=== PATIENT | female | born 1980 | race Caucasian/White ===

== ENCOUNTER 2016-12-25 22:46 | Emergency (ER) | payer BC ==
[~2016-12-25] VITALS: Ht 160 cm; Wt 133.0 kg
[~2016-12-25 22:46] MED LIST: ALPR1TAB PO; BENZ1TAB7 PO; BREX4TAB PO; ESCI20TA30 PO; IBUP-1547 PO; LAMO100T12 PO; LAMO25TA8 PO; NORE0.353 PO; TOPI100T9 PO; TRAM50TA4 PO
--- OUTSIDE RECORDS SUMMARY | 2016-12-25 22:50 | XMS REPORT | Continuity of Care Document ---
Author Author [facility] Organization [facility] Address Unknown Phone Unavailable Care Team Providers Care Timber Buyer Name Role Phone Primary Care Physician Unavailable Source Comments Some departments are not documenting in the electronic medical record. If you do not see the information that you expected, contact Release of Information in the Health Information Management department at [phone] for further assistance in locating additional records.[facility] Active Allergies and Adverse Reactions Not on File Current Medications Not on file Active Problems Not on file Social History Tobacco Use Types Packs/Day Years Used Date Never Assessed Plan of Care Health Maintenance Due Date Last Done Comments Physical (Comprehensive) 01/08/1988 Exam Pertussis Vaccine 01/08/1992 Tetanus Vaccine 1998 Cervical Cancer Screening 2002 Influenza Vaccine 04/05/2017 Results from Last 3 Months Not on file
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
--- OUTSIDE RECORDS SUMMARY | 2016-12-25 22:51 | XMS REPORT | Continuity of Care Document ---
Author Author [facility] Address Unknown Phone Unavailable Care Team Providers Care Intensivist Name Role Phone Tex Pressley Primary Care Physician [phone] Insurance Providers Payer Name Policy Number Subscriber Name Relationship [facility] [id number] Teresa Wang 19 Self / Same As Patient Advance Directives Directive Response Recorded Date/Time Advanced Directives No 11/17/16 12:55pm Chief Complaint and Reason for Visit Chief Complaint Pain Reason for Visit Migraine Problems Active Problems Medical Problem Onset Date [...] Needed as needed for Pain 45 09/28/16 Sumatriptan Succinate 6 Mg/0.5 Ml 1 Dose SUBCUTANEOUS As Needed as needed for Migraine 6 11/17/16 Zolmitriptan 5 Mg 1 [place] NASAL As Needed as needed for Migraine 6 Past Home Medications Medication Directions Ordered Status [...] Directed 12/04/15 Discontinued Metformin Hcl 500 Mg [id number], 500 Mg Oral Twice A Day 12/04/15 [...] discharge instructions. Plan of Care Discharge Date 11/17/16 3:35pm Disposition 01 HOME OR SELF-CARE Condition at Discharge Stable Instructions/Education Provided Migraine Headache (DC) Prescriptions See Medication Section Referrals Tex Pressley - Additional Instructions/Education Go home to bedrest the rest of the day, and then tomorrow resume activity as tolerated. You may be drowsy today from the medications given in the ER, so do not drive. Return to the ER if your headache comes back or gets worse. Notify your doctor's office about this headache and ER visit and to arrange follow up care. Some of your test results may not [...] worrisome symptoms. * Emergency Department phone number: [phone], x [phone]* MEDICAL RECORD If you need copies of your X-rays, call [phone] x [phone]. If you need copies of [...] the billing parties for services. [employer] Emergency Room Services [facility] Physician Services [facility] X-rays [facility] Patients will receive bills for services from the appropriate provider. If you have any questions about your [facility] bill, our staff will be happy to assist you. Please call [phone], and ask for the billing department. THANK YOU for choosing [facility] as your emergency care provider! Care Plan and Goals ~~Discharge Care Plan~~ Problem: Headache Goal: Decreased level of pain. Return to usual activities. Instructions: Take medication(s) as directed; follow up with primary care physician as directed; follow patient home care instructions. Home to rest in a quiet dark room. Functional Status No functional status results. Allergies, Adverse Reactions, Alerts Allergen Type Severity Reaction Status Last Updated Penicillin Allergy Unknown Active 11/17/16 Sulfa (Sulfonamide Antibiotics) Allergy Unknown Active 11/17/16 Prednisone Adverse Reaction Unknown Active 11/17/16 Promethazine Allergy Mild ITCHING Active 11/17/16 Immunizations Name Given Type Status Date Influenza Vaccine Received if Current 06/05/15 Historical Historical Vital Signs Acute Vital Signs Vital Response Date/Time Temperature (Fahrenheit) 98.8 11/17/2016 7:01pm Pulse 75 bpm 11/17/2016 7:01pm Respirations 16 11/17/2016 12:55pm Height 5 ft 3 in Weight 289 lb Body Mass Index 51.0 kg/m^2 Results [...] Hemoglobin Concent 32.0 g/dL 31.0-37.0 11/11/2016 1: 5311/11/2016 2:09am Red Cell Distribution Width 14.5 % 11.8-15.6 11/11/2016 1:532016 2:09am Platelet Count 321 10^3uL 150-450 11/11/2016 1:5311/11/2016 2:09am Mean Platelet Volume 9.3 FL 6.0-9.5 11/11/2016 1:5311/11/2016 2: 09am Neutrophils (%) (Auto) 59 % 51-67 11/11/2016 1:5311/11/2016 2:09am Lymphocytes (%) (Auto) 30 % 20-46 11/11/2016 1:5311/11/2016 2:09am Monocytes (%) (Auto) 9 % 3-11 11/11/2016 1:5311/11/2016 2:09am Eosinophils (%) (Auto) 2 % 0-4 11/11/2016 1:5311/11/2016 2:09am Basophils (%) (Auto) 0 % 0-2 11/11/2016 1:5311/11/2016 2:09am Neutrophils # (Auto) 6.5 X10^3 11/11/2016 1:5311/11/2016 2:09am Lymphocytes # (Auto) 3.2 X10^3 11/11/2016 1:5311/11/2016 2:09am Monocytes # (Auto) 1.0 X10^3 11/11/2016 1:5311/11/2016 2:09am Eosinophils # (Auto) 0.2 10^3uL 11/11/2016 1:5311/11/2016 2:09am Basophils # (Auto) 0.0 10^3uL 11/11/2016 1:5311/11/2016 2:09am Urine Collection Type CLEAN CATCH 11/11/2016 1:3511/11/2016 2: 17am Urine Color Yellow 11/11/2016 1:3511/11/2016 2:17am Urine Clarity Clear 11/11/2016 1:3511/11/2016 2:17am Urine pH 7.0 5.0 - 8.0 11/11/2016 1:3511/11/2016 2:17am Urine Specific [place] 1.010 1.005-1.030 11/11/2016 1:35am 2016 2:17am Urine Protein Negative Negative 11/11/2016 1:35am 11/11/2016 2:17am Urine Glucose (UA) Negative Negative 11/11/2016 [...] 17am Anion Gap 14.3 MEQ/L 3-15 11/11/2016 1:5311/11/2016 2:17am Blood Urea Nitrogen 6 mg/dL L 7-18 11/11/2016 1:53am 11/11/2016 2:17am Creatinine 0.76 mg/dL 0.6-1.2 11/11/2016 1:5311/11/2016 2:17am BUN/Creatinine Ratio 8 L 10-20 11/11/2016 1:5311/11/2016 2:17am Estimat Glomerular Filtration Rate 104.8 11/11/2016 1:53am 2016 2:17am Estimated GFR (Non- 86.6 11/11/2016 1:532016 2:17am Glucose Level 92 mg/dL 70-110 11/11/2016 [...] U/L 23-300 11/11/2016 1:53am 11/11/2016 2:17am Procedures Procedure Status Date Provider(s) ROUTINE VENIPUNCTURE Completed 11/11/16 COMPREHEN METABOLIC PANEL Completed 11/11/16 URINALYSIS AUTO W/O SCOPE Completed 11/11/16 URINE TEST Completed 11/11/16 ASSAY OF LIPASE Completed 11/11/16 COMPLETE CBC W/AUTO DIFF WBC Completed 11/11/16 HYDRATE IV INFUSION ADD-ON Completed 11/11/16 THER/PROPH/DIAG INJ IV PUSH Completed 11/11/16 TX/PRO/DX INJ NEW DRUG ADDON Completed 11/11/16 EMERGENCY DEPT VISIT Completed 11/11/16 Completed 11/11/16 Completed 11/11/16 Completed 11/11/16 Encounters Encounter Location Arrival/Admit Date Discharge/Depart Date Attending Provider Departed Emergency Room [facility] 11/17/16 12:52pm 11/17/16 3:35pm MADAI MCMULLEN DO Departed Emergency Room [facility] 11/11/16 1:13am 11/11/16 2:50am DIOGENES SKY MD Recent Diagnosis
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
--- OUTSIDE RECORDS SUMMARY | 2016-12-25 22:51 | XMS REPORT | Continuity of Care Document ---
Author Author [facility] Address Unknown Phone Unavailable Care Team Providers Care Community Board Member Name Role Phone Tex Pressley Primary Care Physician [phone] Insurance Providers Payer Name Policy Number Subscriber Name Relationship [facility] [id number] Teresa Wang 19 Self / Same As Patient Advance Directives Directive Response Recorded Date/Time Advanced Directives No 12/09/16 1:48am Chief Complaint and Reason for Visit Chief Complaint Pain Reason for Visit Left flank pain Problems Active Problems Medical Problem Onset [...] Migraine 6 11/17/16 Zolmitriptan 5 Mg 1 [place] NASAL As Needed as needed for Migraine 6 Ondansetron 4 Mg 4 Mg ORAL As Needed as needed for Nausea 11/22/16 Norethindrone 0.35 Mg 1 Tab ORAL Daily In Am 11/22/16 Ketorolac Tromethamine 10 Mg 10 Mg ORAL Every 6 Hours as needed for Pain 12 12/09/16 Metoclopramide Hcl 10 Mg 10 Mg ORAL Every 6 Hours as needed for Nausea/ Vomiting 10 12/09/16 Past Home Medications Medication Directions Ordered Status [...] Directed 12/04/15 Discontinued Metformin Hcl 500 Mg [id number], 500 Mg Oral Twice A Day 12/04/15 [...] Needed as needed for Pain 09/28/16 Discontinued Social History Query Response Start Date Stop Date Smoking Status Never smoker Hospital Discharge Instructions No hospital discharge instructions. Plan of Care Discharge Date 12/09/16 5:13am Disposition 01 HOME OR SELF-CARE Instructions/Education Provided Kidney Stones (DC) Prescriptions See Medication Section Referrals Tex Pressley - Additional Instructions/Education ED JUANCARLOS if any worse. Follow up with your urologist Saturday. Some of your test results may not [...] worrisome symptoms. * Emergency Department phone number: [phone], x [phone]* MEDICAL RECORD If you need copies of your X-rays, call [phone] x [phone]. If you need copies of [...] services. SERVICE BILLING LIBERTARIAN Emergency Room Services [facility] Physician Services [facility] X-[facility] [place] [facility] Patients will receive bills for services from the appropriate provider. If you have any questions about your [facility] bill, our staff will be happy to assist you. Please call [phone], and ask for the billing department. THANK YOU for choosing [facility] as your emergency care provider! Care [...] 12/09/16 Prednisone Adverse Reaction Unknown Active 12/09/16 Promethazine Allergy Mild ITCHING Active 12/09/16 Immunizations Name Given Type Status Date Influenza Vaccine Received if Current 06/05/15 Historical Historical Vital Signs Acute Vital Signs Vital Response Date/Time Temperature (Fahrenheit) 97.8 12/09/2016 5:11am Pulse 80 bpm 12/09/2016 5:11am Respirations 16 12/09/2016 5:11am Height 5 ft 3 in Weight 291 lb Body Mass Index 51.0 kg/m^2 Results [...] Mean Corpuscular Hemoglobin 28.9 PG 26.0-34.0 11/11/2016 1:532016 2:09am Mean Corpuscular Hemoglobin Concent 32.0 g/dL [...] 2:09am Urine Collection Type CLEAN CATCH 11/11/2016 1:35am 11/11/2016 2: 17am Urine Color Yellow 11/11/2016 1:35am 11/11/2016 2:17am Urine Clarity Clear 11/11/2016 1:35am 11/11/2016 2:17am Urine pH 7.0 5.0 - 8.0 11/11/2016 1:35am 11/11/2016 2:17am Urine Specific [place] 1.010 1.005-1.030 11/11/2016 1:35am 2016 2:17am Urine [...] Calculated Osmolality 272 mosm/L L 280-300 11/11/2016 1:5311/11/2016 2:17am Calcium Level 8.5 mg/dL L 8.8-10.8 11/11/2016 1:53am 11/11/2016 2:17am Calcium/Ionized Calcium Ratio 3.9 mg/dL 3.8-4.6 11/11/2016 1:5311/11 2:17am Total Bilirubin 0.7 mg/dL 0.1-1.0 11/11/2016 1:53am 11/11/2016 2:17am Alkaline Phosphatase 112 U/L 38-126 11/11/2016 1:5311/11/2016 2: 17am Aspartate Amino Transf (AST/SGOT) 19 U/L 15-37 11/11/2016 1:53am 2016 2:17am Alanine Aminotransferase (ALT/SGPT) 38 U/L 30-65 11/11/2016 1:5304/2017 2:17am Total Protein 6.7 g/dL 6.4-8.5 11/11/2016 1:5311/11/2016 2:17am Albumin 3.7 g/dL 3.4-5.0 11/11/2016 1:5311/11/2016 2:17am Albumin/Globulin Ratio 1.233 1.1-1.8 11/11/2016 1:53am 11/11/2016 2: 17am Lipase 71 U/L 23-300 11/11/2016 1:5311/11/2016 2:17am Pending Laboratory Results Test Name Collection Date/Time [...] 11/11/16 Completed 11/11/16 Completed 11/11/16 Completed 11/11/16 HYDRATE IV INFUSION ADD-ON Completed 11/17/16 THER/PROPH/DIAG INJ IV PUSH Completed 11/17/16 TX/PRO/DX INJ NEW DRUG ADDON Completed 11/17/16 EMERGENCY DEPT VISIT Completed 11/17/16 Completed 11/17/16 Completed 11/17/16 Completed 11/17/16 Completed 11/17/16 HYDRATE IV INFUSION ADD-ON Completed 11/22/16 THER/PROPH/DIAG INJ IV PUSH Completed 11/22/16 TX/PRO/DX INJ NEW DRUG ADDON Completed 11/22/16 EMERGENCY DEPT VISIT Completed 11/22/16 Completed 11/22/16 Completed 11/22/16 Completed 11/22/16 Completed 11/22/16 Completed 11/22/16 Encounters Encounter Location Arrival/Admit Date Discharge/Depart Date Attending Provider Departed Emergency Room [facility] 12/09/16 1:42am 12/09/16 5:13am STEPHANI LOZANO MD Departed Emergency Room [facility] 11/22/16 4:32pm 11/22/16 6:53pm DAISHA PATEL MD Departed Emergency Room [facility] 11/17/16 12:52pm 11/17/16 3:35pm MADAI MCMULLEN DO Departed Emergency Room [facility] 11/11/16 1:13am 11/11/16 2:50am DIOGENES SKY MD Recent Diagnosis
--- OUTSIDE RECORDS SUMMARY | 2016-12-25 22:51 | XMS REPORT | Continuity of Care Document ---
Author Author [facility] Organization [facility] Address Unknown Phone Unavailable Support Name Relationship Address Phone DECEMBER, GENEVIEVE Rodriguez DO Caregiver [address] [place] [address] Unavailable RHEA ZIMMERMAN DO Caregiver Unknown Unavailable AUGUSTA WANG Next Of Kin [address] [place] [address] Insurance Providers Guarantor Teresa Wang Address [address] [place] [address] Email [email or web address] [facility] Policy Number [id number] Subscriber's Name Teresa Wang Relationship 18 Self Group Number [id number] Advance Directives Directive Response Recorded Date/Time Advanced Directives Type None 09/30/16 11:24pm Chief Complaint and Reason for Visit Chief Complaint Abdominal Pain Reason for Visit Flank pain Problems Active Problems Medical Problem Onset Date Status Bipolar disorder Unknown Chronic Migraine headache Unknown Chronic Nephrolithiasis Unknown Acute UTI (lower urinary tract infection) Unknown Acute Past Problems Medical Problem Onset Date Flank pain Unknown Flank pain Unknown GERD with esophagitis Unknown Gastritis Unknown Left flank pain Unknown Nausea Unknown Right flank pain Unknown Vasovagal near syncope Unknown Medications Current Home Medications Medication Dose Units Route Directions Days Qty Instructions Start Date Alprazolam (Xanax) 1 Mg Tablet 1 Mg Oral Twice A Day 06/01/12 Benztropine Mesylate 1 Mg Tablet 1 Mg Oral Twice A Day 05/14/16 Brexpiprazole (Rexulti) 4 Mg Tablet 4 Mg Oral Bedtime 12/07/15 Escitalopram Oxalate 20 Mg Tablet 20 Mg Oral Daily 05/14/16 Ibuprofen 800 Mg Tablet 800 Mg Oral As Needed 07/22/16 Lamotrigine 25 Mg Tablet 25 Mg Oral Daily 07/22/16 Lamotrigine 100 Mg Tablet 100 Mg Oral Daily 07/22/16 Norethindrone (Jewell) 0.35 Mg Tablet 0.35 Mg Oral Daily 07/22/16 Topiramate (Topamax) 100 Mg Tablet 100 Mg Oral Twice A Day Tramadol Hcl 50 Mg Tablet 50 Mg Oral Every 8 Hours as needed for Pain 03/15/16 Social History Social History Problem Response Recorded Date/Time Onset Date Status Hx Substance Use No 10/01/2016 12:17am Not Applicable Not Applicable Hx Alcohol Use No 10/01/2016 12:17am Not Applicable Not Applicable Tobacco Usage none 07/21/2014 9:21pm Not Applicable Not Applicable Query Response Start Date Stop Date Smoking Status Never smoker Hospital Discharge Instructions No hospital discharge instructions. Plan of Care Discharge Date 10/01/16 1:49am Disposition 01 DISCHARGED HOME, SELF-CARE Condition at Discharge Improved Instructions/Education Provided Flank Pain (ED) Prescriptions See Medication Section Referrals RHEA ZIMMERMAN DO Order Date: 1 Week Note: Additional Instructions/Education We have evaluated you for right flank pain. We did not find a cause of your symptoms tonight. Follow up with your family doctor to find the cause of your pain. Care Plan and Goals Physician Care Plan Problem: Flank pain Goal: Follow up with primary care provider Instructions: Take medications and follow care plan as discussed/written Functional Status No functional status results. Allergies, Adverse Reactions, Alerts Allergen Type Severity Reaction Status Last Updated Penicillin Allergy Unknown Active 06/30/16 Sulfa (Sulfonamide Antibiotics) Allergy Unknown Active 06/30/16 Prednisone Adverse Reaction Severe MANIC Active 09/30/16 Clavulanate Allergy Severe SWELLING Active 09/30/16 Amoxicillin Allergy Severe SWELLING Active 09/30/16 Immunizations Query Response on File Recorded Date/Time Hx Influenza Vaccination Y 201307/19/14 9:50pm Hx Tetanus, Diptheria, Pertussis Y 201207/19/14 9:50pm Hx Influenza Vaccination Y 201307/19/14 9:50pm Hx Tetanus, Diptheria, Pertussis Y 201207/19/14 9:50pm Influenza Vaccine Hx MAY 2016 10/01/16 12:17am Vital Signs Acute Vital Signs Vital Response Date/Time Temperature (Fahrenheit) 98.9 deg F (96.8 - 99.1) 10/01/2016 1:49am Temperature (Calculated Celsius) 37.68639 degrees C (36.0 - 37.3) 10/01/2016 1:49am Pulse Rate (adult) 79 bpm (60 - 100) 10/01/2016 1:49am Respiratory Rate 16 breaths/min (10 - 20) 10/01/2016 1:49am O2 Sat by Pulse Oximetry 97 % (90 - 100) 10/01/2016 1:49am Blood Pressure 166/93 mm Hg 10/01/2016 1:49am Height (Feet) 5 feet 09/30/2016 10:00pm Height (Inches) 3.00 inches 09/30/2016 10:00pm Weight (Kilograms) 132.100 kg 09/30/2016 10:00pm Body Mass Index (BMI) 51.0 09/30/2016 10:00pm Results Laboratory Results Test Name Result Units Flags Reference Collection Date/Time Result Date/ Time Comments Neutrophils % (Manual) 77.0 % H 33-66 07/22/2016 8:41pm 07/22/2016 9: 07pm Lymphocytes % (Manual) 21.0 % L 23-45 07/22/2016 8:41pm 07/22/2016 9: 07pm Eosinophils % (Manual) 1.0 % 0-4 07/22/2016 8:41pm 07/22/2016 9:07pm Basophils % (Manual) 1.0 % 0-2 07/22/2016 8:41pm 07/22/2016 9:07pm Absolute Neutrophils (Manual) 11.7 T/MM3 H 1.8-7.7 07/22/2016 8:41pm 9:07pm Lymphocytes # (Manual) 3.2 T/MM3 1-4.8 07/22/2016 8:41pm 07/22/2016 9: 07pm Eosinophils # (Manual) 0.2 T/MM3 0-0.5 07/22/2016 8:41pm 07/22/2016 9: 07pm Basophils # (Manual) 0.2 T/MM3 0-0.2 07/22/2016 8:41pm 07/22/2016 9: 07pm Red Cell Morphology Comment NORMAL 07/22/2016 8:41pm 07/22/2016 9: 07pm Lipase 128 U/L 23-300 07/22/2016 8:41pm 07/22/2016 8:55pm Urine WBC NONE SEEN /HPF 0-5 07/22/2016 9:43pm 07/22/2016 10:00pm Urine RBC 1-3 /HPF 0-3 07/22/2016 9:43pm 07/22/2016 10:00pm Urine Bacteria TRACE H NEGATIVE 07/22/2016 9:43pm 07/22/2016 10:00pm Urine Culture Indicated CULT NOT INDICATED 07/22/2016 9:43pm 2015 10:00pm White Blood Count 9.1 T/MM3 4.5-11.0 09/30/2016 11:51pm 10/01/2016 12: 11am Red Blood Count 4.58 M/MM3 4.00-5.20 09/30/2016 11:51pm 10/01/2016 12: 11am Hemoglobin 13.5 GM/DL 12-16 09/30/2016 11:51pm 10/01/2016 12:11am Hematocrit 42.1 % 36-46 09/30/2016 11:51pm 10/01/2016 12:11am Mean Corpuscular Volume 91.9 UM3 80-100 09/30/2016 11:51pm 10/01/2016 12:11am Mean Corpuscular Hemoglobin 29.5 UUG 26-34 09/30/2016 11:51pm 2016 12:11am Mean Corpuscular Hemoglobin Concent 32.1 GM/DL 31-37 09/30/2016 11:51pm 10/01/2016 12:11am RDW Standard Deviation 47.7 FL 36.9-50.2 09/30/2016 11:51pm 10/01/2016 12:11am Platelet Count 343 T/MM3 130-400 09/30/2016 11:51pm 10/01/2016 12:11am Mean Platelet Volume 9.4 UM3 9.4-12.4 09/30/2016 11:51pm 10/01/2016 12: 11am Neutrophils (%) (Auto) 57.7 % 33-66 09/30/2016 11:51pm 10/01/2016 12: 11am Lymphocytes (%) (Auto) 30.0 % 23-45 09/30/2016 11:51pm 10/01/2016 12: 11am Monocytes (%) (Auto) 8.3 % 0-9.0 09/30/2016 11:51pm 10/01/2016 12:11am Eosinophils (%) (Auto) 3.5 % 0-4 09/30/2016 11:5110/01/2016 12:11am Basophils (%) (Auto) 0.4 % 0-2 09/30/2016 11:51pm 10/01/2016 12:11am Immature Granulocyte % (Auto) 0.1 % 0.0-0.5 09/30/2016 11:51pm 2016 12:11am Absolute Neutrophils (auto) 5.2 T/MM3 1.8-7.7 09/30/2016 11:51pm 2016 12:11am Absolute Lymphocytes (auto) 2.7 T/MM3 1-4.8 09/30/2016 11:51pm 2016 12:11am Absolute Monocytes (auto) 0.8 T/MM3 0-0.8 09/30/2016 11:51pm 2016 12:11am Absolute Eosinophils (auto) 0.3 T/MM3 0-0.5 09/30/2016 11:51pm 2016 12:11am Absolute Basophils (auto) 0.0 T/MM3 0-0.2 09/30/2016 11:2016 12:11am Absolute Immature Granulocyte (auto 0.01 T/MM3 0.00-0.03 09/30/2016 11: 51pm 10/01/2016 12:11am Icterus Index < 2 0-7 09/30/2016 11:10/01/2016 12:17am Chemistry Specimen Hemolysis < 15 0-25 09/30/2016 11:pm 10/01/2016 12:17am 0-25: Specimen Exhibited No Hemolysis. Turbidity < 20 0-20 09/30/2016 11:5110/01/2016 12:17am Sodium Level 144 MEQ/L 134-144 09/30/2016 11:51pm 10/01/2016 12:17am Potassium Level 3.7 MEQ/L 3.6-5 09/30/2016 11:10/01/2016 12:17am Chloride Level 110 MEQ/L H 98-107 09/30/2016 11:51pm 10/01/2016 12:17am Carbon Dioxide Level 25 MEQ/L 22-30 09/30/2016 11:51pm 10/01/2016 12: 17am Anion Gap 9 MEQ/L 5-15 09/30/2016 11:5110/01/2016 12:17am Blood Urea Nitrogen 10.0 MG/DL 7-17 09/30/2016 11:51pm 10/01/2016 12: 17am Creatinine 0.8 MG/DL 0.7-1.2 09/30/2016 11:51pm 10/01/2016 12:17am BUN/Creatinine Ratio 13 RATIO 6-26 09/30/2016 11:51pm 10/01/2016 12: 17am Glomerular Filtration Rate Calc 82 09/30/2016 11:51pm 10/01/2016 12 :17am Glucose Level 94 MG/DL 65-110 09/30/2016 11:51pm 10/01/2016 12:17am Calculated Osmolality 276 MOSM/KG 261-280 09/30/2016 11:51pm 2016 12:17am Calcium Level 9.2 MG/DL 8.4-10.2 09/30/2016 11:51pm 10/01/2016 12:17am Urine Collection Type CLEANCATCH-MIDSTREAM 09/30/2016 10:00pm 09/30 11:46pm Urine Color YELLOW YELLOW 09/30/2016 10:00pm 09/30/2016 11:46pm Urine Turbidity CLEAR CLEAR 09/30/2016 10:00pm 09/30/2016 11:46pm Urine Specific [place] 1.010 L 1.015-1.025 09/30/2016 10:00pm 2016 11:46pm Urine pH 7.0 5.0-8.0 09/30/2016 10:00pm 09/30/2016 11:46pm Urine Leukocyte Esterase NEGATIVE NEGATIVE 09/30/2016 10:00pm 2016 11:46pm Urine Nitrite NEGATIVE NEGATIVE 09/30/2016 10:00pm 09/30/2016 11: 46pm Urine Protein NEGATIVE NEGATIVE 09/30/2016 10:00pm 09/30/2016 11: 46pm Urine Glucose (UA) NEGATIVE NEGATIVE 09/30/2016 10:00pm 09/30/2016 11 :46pm Urine Ketones NEGATIVE NEGATIVE 09/30/2016 10:00pm 09/30/2016 11: 46pm Urine Urobilinogen 0.2 EU/DL NORMAL 09/30/2016 10:00pm 09/30/2016 11: 46pm Urine Bilirubin NEGATIVE NEGATIVE 09/30/2016 10:00pm 09/30/2016 11: 46pm Urine Blood NEGATIVE NEGATIVE 09/30/2016 10:00pm 09/30/2016 11:46pm Urinalysis Comment MICROSCOPIC NOT IND. 09/30/2016 10:00pm 2016 11:46pm Procedures Procedure Status Date Provider(s) Ct abd & pelvis w/o contrast Completed 07/22/16 Metabolic panel total ca Completed 07/22/16 Urinalysis auto w/scope Completed 07/22/16 Assay of lipase Completed 07/22/16 Chorionic gonadotropin assay Completed 07/22/16 Complete cbc w/auto diff wbc Completed 07/22/16 Hydrate iv infusion add-on Completed 07/22/16 Ther/proph/diag inj iv push Completed 07/22/16 Tx/pro/dx inj new drug addon Completed 07/22/16 Tx/pro/dx inj new drug addon Completed 07/22/16 Emergency dept visit Completed 07/22/16 959702"INJECTION, KETOROLAC TROMETHAMINE, PER 15 MG" Completed 07/22/16 941646"INJECTION, ONDANSETRON HYDROCHLORIDE, PER 1 MG" Completed 07/22/16 [id number]"INFUSION, NORMAL SALINE SOLUTION , 1000 CC" Completed 07/22/16 Encounters Encounter Location Arrival/Admit Date Discharge/Depart Date Attending Provider Departed Emergency Room [facility] 09/30/16 9:21pm 10/01/16 1: 49am GENEVIEVE GIBSON DO Departed Emergency Room [facility] 07/22/16 7:26pm 07/22/16 10: 42pm JACE GRAY MD Recent Diagnosis
--- OUTSIDE RECORDS SUMMARY | 2016-12-25 22:52 | XMS REPORT | Continuity of Care Document ---
Author Author [facility] Address Unknown Phone Unavailable Care Team Providers Care [employer] Teacher Name Role Phone Tex Pressley Primary Care Physician [phone] Insurance Providers Payer Name Policy Number Subscriber Name Relationship [facility] [id number] Teresa Wang 18 Self / Same As Patient Advance Directives Directive Response Recorded Date/Time Advanced Directives No 11/22/16 4:40pm Chief Complaint and Reason for Visit Chief [...] Migraine 6 11/17/16 Zolmitriptan 5 Mg 1 Proctor NASAL As Needed as needed for Migraine 6 Ondansetron 4 Mg 4 Mg ORAL As Needed as needed for Nausea 11/22/16 Norethindrone 0.35 Mg 1 Tab ORAL Daily In Am 11/22/16 Past Home Medications Medication Directions Ordered Status [...] Directed 12/04/15 Discontinued Metformin Hcl 500 Mg [id number], 500 Mg Oral Twice A Day 12/04/15 [...] discharge instructions. Plan of Care Discharge Date 11/22/16 6:53pm Disposition 01 HOME OR SELF-CARE Condition at Discharge Stable Instructions/Education Provided Migraine Headache (DC) Prescriptions See Medication Section Referrals Tex Pressley - Additional Instructions/Education Home to rest in a dark quiet room with minimal stimulation. Advance diet slowly as tolerated. Continue antimigraine medications. Follow-up with family physician if symptoms worsen or return to the ER Some of your test results may not [...] worrisome symptoms. * Emergency Department phone number: [phone], x [phone]* MEDICAL RECORD If you need copies of your X-rays, call [phone] x [phone]. If you need copies of [...] services. SERVICE BILLING LIBERTARIAN Emergency Room Services [facility] Physician Services [facility] X-rays [facility] Patients will receive bills for services from the appropriate provider. If you have any questions about your [facility] bill, our staff will be happy to assist you. Please call [phone], and ask for the billing department. THANK YOU for choosing [facility] as your emergency care provider! Care Plan [...] Status Last Updated Penicillin Allergy Unknown Active 11/22/16 Sulfa (Sulfonamide Antibiotics) Allergy Unknown Active 11/22/16 Prednisone Adverse Reaction Unknown Active 11/22/16 Promethazine Allergy Mild ITCHING Active 11/22/16 Immunizations Name Given Type Status Date Influenza Vaccine Received if Current 06/05/15 Historical Historical Vital Signs Acute Vital Signs Vital Response Date/Time Temperature (Fahrenheit) 97.7 11/22/2016 4:40pm Pulse 70 bpm 11/22/2016 6:35pm Respirations 16 11/22/2016 6:35pm Height 5 ft 3 in Weight 286 lb Body Mass Index 50.0 kg/m^2 Results Laboratory Results Test Name Result [...] - 8.0 11/11/2016 1:3511/11/2016 2:17am Urine Specific [place] 1.010 1.005-1.030 11/11/2016 1:35am 2016 2:17am Urine [...] Discharge/Depart Date Attending Provider Departed Emergency Room [facility] 11/22/16 4:32pm 11/22/16 6:53pm DAISHA PATEL MD Departed Emergency Room [facility] 11/17/16 12:52pm 11/17/16 3:35pm MADAI MCMULLEN DO Departed Emergency Room [facility] 11/11/16 1:13am 11/11/16 2:50am DIOGENES SKY MD Recent Diagnosis
[2016-12-25 23:05] VITALS: TEMP 98.1; Ht 160 cm; Wt 133.0 kg
--- NOTE | 2016-12-25 23:13 | ERPDOC ---
Departure Disposition Decision Date: December 26, 2016 Disposition Decision Time: 00:38 Disposition: 01 DISCHARGED HOME, SELF-CARE Impression Impression Impression: Primary Impression: Acute right flank pain Severity: Moderate Condition: Stable Seen By: Mid-level only Referrals: RHEA ZIMMERMAN DO (Family) Patient Instructions: Flank Pain (ED) Problems/Meds/Labs Reviewed?: Yes Medications reviewed and manag: Yes Additional Instructions: Your labs today are normal and your urine is clear of infection. I do want you to follow up with Dr Luciano this week for reevaluation. Use the Oxycodone as needed for pain and the Reglan for nausea. The Reglan may also help some with the pain as this does help relax the muscles. Follow up care ordered?: Yes Mental Status: Alert, Oriented Scripts Metoclopramide HCl (Reglan) 10 Mg Tablet 10 MG PO Q6HR Y for NAUSEA, #15 TAB 0 Refills Prov: MARTY ACEVEDO SUE 12/26/16 HPI - Female General Chief Complaint: Flank Pain Stated Complaint: KIDNEY STONES Time Seen by Provider: 22:57 Source: patient Exam Limitations: no limitations HPI - Female Initial Comments She started having some right flank pain 2 days ago on Saturday. States that she was evaluated at [facility] on Saturday and had a CT that did show a kidney stone. Was sent home on Oxycodone and PO Toradol. She has been taking both at home without relief. She has had some nausea but no vomiting. Denies any fever or chills. She does see Dr Armen Luciano for her urology issues. She has had concussion in September of this last year and so is only working 5 hours a day due to post concussive syndrome and so has not been able to get away from work to go see him. Occurred At: home Onset: Gradual Duration: other (Over the last several days) Severity/Quality: sharpness Location: right flank Radiation: none Associated Symptoms: nausea/vomiting, DENIES: abdominal pain, diaphoresis, dysuria, fever/chills, loss of bladder control, lower back pain, lumps, mass, nocturia, polyuria, swelling, syncope, urinary frequency Hx of Similar Symptoms: No Is Pt now?: No Allergies: Coded Allergies: amoxicillin (Verified Allergy, Severe, SWELLING, 09/30/16) clavulanic acid (Verified Allergy, Severe, SWELLING, 09/30/16) Penicillins (Verified Allergy, Unknown, 06/30/16) Sulfa (Sulfonamide Antibiotics) (Verified Allergy, Unknown, 06/30/16) prednisone (Verified Adverse Reaction, Severe, MANIC, 09/30/16) Past History Patient Surgical History Cholecystectomy. Knee surgery 2. Endometrial ablation. Wrist surgery. Kidney stone removal Past Medical History GI: gallbladder disease, other Female: endometriosis, kidney stones Neurological: migraines Psychological: bipolar, depression Surgical History General: gallbladder, other Joint: knee Vaccines Hx Influenza Vaccination: Yes (2013) Hx Tetanus, Diptheria, Pertuss: Yes (2012) Social History Substance Use Type: does not use Alcohol Intake: none Marital Status: Single Housing: house Current Occupational Status: employed Current Occupation: Counselor at [employer] Review of Systems Constitutional Constitutional: DENIES: chills, dizziness, fatigue, fever, weakness Cardiovascular Cardiac: DENIES: chest pain, orthopnea Rhythm/Rate: DENIES: irregular beat, palpitations Pulmonary Respiratory: DENIES: cough, dyspnea, sputum, tachypnea GI Upper Abdomen: DENIES: nausea, pain, vomiting Lower Abdomen: DENIES: constipation, diarrhea, pain General: other (right flank) Integumentary Skin: DENIES: rash Neurological General: DENIES: headache, numbness, tingling, weakness Physical Exam General General Nourishment: well nourished, well developed, appears stated age, no acute distress, adult, obese General Body Habitus: well groomed Vitals and Pain First Documented Vital Signs Date Time Temp Pulse Resp B/P Pulse Ox O2 Delivery O2 Flow Rate FiO2 12/25/16 23:05 98.1 89 20 132/97 97 Room Air Weight: Kilograms: Height (feet): 5 Height (inches): 3.00 Triage Pain Scale: RN VS reviewed by Provider: Yes Normal Exams: Neck: Full range of motion, without adenopathy, JVD, bruits or thyromegaly Chest/Resp: Clear all sands, with good airflow, and symmetry bilaterally CV: Regular rate and rhythm, without murmur or gallop, Pulses 2+ all extremities, capillary refill, <2 seconds all ext., no pedal edema noted Abdomen: Bowel sounds positive, soft, non-tender, non-distended, no hepatosplenomegaly, masses or bruits noted Lymphatic: No lymphadenopathy, or lymphedema noted Integumentary: No rashes, hives, or bruising noted Neurologic: Patient is alert, and oriented Psychiatric: Patient exhibits, appropriate attention, emotion and affect Abdomen (brief) Abdominal Brief: FOUND: other (Denies any CVA tenderness on exam) Differential Diagnoses Considering: Pyelonephritis, Renal Colic, UTI, Other (muscle spasm) Progress Results/Orders Orders Procedure Category Date Status Time Cbc W/Auto LAB 12/25/16 Complete Diff-Reflex Manual Cmp - Comprehensive LAB 12/25/16 Complete Metabolic Iv Lock (Ed Only) EDM 12/25/16 Transmitted 23:07 Prochlorperazine PHA 12/25/16 Complete (Compazine) 23:15 Ketorolac (Toradol) PHA 12/25/16 Complete 23:15 LAB 12/25/16 Complete Qualitative, Urine 23:13 Metoclopramide PHA 12/25/16 Complete (Reglan Inj) 23:15 Diphenhydramine PHA 12/26/16 Complete (Benadryl) 00:30 UA, LAB 12/26/16 Complete Dip&Micro(Complete) & 00:31 Metoclopramide PHA 12/26/16 Complete (Reglan) 00:45 Lab Results Laboratory Tests Test 12/25/16 23:17 12/26/16 00:31 12/26/16 00:32 White Blood Count 10.2T/MM3 Red Blood Count 4.14M/MM3 Hemoglobin 12.2GM/DL Hematocrit 39.7% Mean Corpuscular Volume 95.9UM3 Mean Corpuscular Hemoglobin 29.5UUG Mean Corpuscular Hemoglobin Concent 30.7GM/DL RDW Standard Deviation 47.4FL Platelet Count 336T/MM3 Mean Platelet Volume 9.0UM3 Immature Granulocyte % (Auto) 0.4% Neutrophils (%) (Auto) 60.3% Lymphocytes (%) (Auto) 27.7% Monocytes (%) (Auto) 8.7% Eosinophils (%) (Auto) 2.4% Basophils (%) (Auto) 0.5% Absolute Immature Granulocyte (auto 0.04T/MM3 Absolute Neutrophils (auto) 6.2T/MM3 Absolute Lymphocytes (auto) 2.8T/MM3 Absolute Monocytes (auto) 0.9T/MM3 Absolute Eosinophils (auto) 0.3T/MM3 Absolute Basophils (auto) 0.1T/MM3 Turbidity < 20 Sodium Level 147MEQ/L Potassium Level 4.0MEQ/L Chloride Level 111MEQ/L Carbon Dioxide Level 26MEQ/L Anion Gap 10MEQ/L Blood Urea Nitrogen 7.0MG/DL Creatinine 0.9MG/DL Glomerular Filtration Rate Calc 71 BUN/Creatinine Ratio 8RATIO Glucose Level 79MG/DL Calculated Osmolality 279MOSM/KG Calcium Level 9.1MG/DL Total Bilirubin 0.30MG/DL Icterus Index < 2 Aspartate Amino Transf (AST/SGOT) 18U/L Alanine Aminotransferase (ALT/SGPT) 37U/L Alkaline Phosphatase 99U/L Total Protein 6.6G/DL Albumin 4.1G/DL Globulin 2.5G/DL Albumin/Globulin Ratio 1.6RATIO Chemistry Specimen Hemolysis < 15 Urine Collection Type Cleancatch-midstream Urine Color Yellow Urine Turbidity Clear Urine pH 6.0 Urine Specific [place] 1.010 Urine Protein Negative Urine Glucose (UA) Negative Urine Ketones Negative Urine Blood 1+ Urine Nitrite Negative Urine Bilirubin Negative Urine Urobilinogen 0.2EU/DL Urine Leukocyte Esterase Negative Urine RBC 1-3/HPF Urine WBC None seen/HPF Urine Bacteria None seen Urine Culture Indicated Cult not indicated Urine Test Negative Medications Current ED Medications Prochlorperazine Edisylate (Compazine) 10 mg O ONCE IV ; Start 12/25/16 at 23: 15; Stop 12/25/16 at 23:15; Status DC Ketorolac Tromethamine (Toradol) 30 mg O ONCE IV Last administered on 23:39; Start 12/25/16 at 23:15; Stop 12/25/16 at 23:16; Status DC Metoclopramide HCl (REGLAN Inj) 10 mg O ONCE IV Last administered on 23:41; Start 12/25/16 at 23:15; Stop 12/26/16 at 06:24; Status DC Diphenhydramine HCl (Benadryl) 25 mg O ONCE IV Last administered on 12/26/16 00:59; Start 12/26/16 at 00:30; Stop 12/26/16 at 06:24; Status DC Metoclopramide HCl (Reglan) 10 mg O ONCE PO Last administered on 5/24/17at 00: 59; Start 12/26/16 at 00:45; Stop 12/26/16 at 00:46; Status DC Progress Progress CBC, CMP, UA, and HCG today are negative. I did give Reglan and Toradol for pain and did note that she is notably more comfortable, is relaxed on the bed talking with her . Was sitting forward and moaning on initial exam. She does state however that she had not had any relief of pain. Did call and speak with ED at [facility], had requested CT scan from previous visit but faxes were not coming through. They did state that on the CT report from visit she had a right sided 2mm stone, non obstructing. I did talk with her that I am going to go ahead and let her go home at this time. Have her follow up with Dr Luciano. She does have Oxycodone at home and have her continue to use this. Will give her some Reglan to use as well. MARTY ACEVEDO APRN December 25, 2016 23:13
[2016-12-25] MEDS ORDERED: PROCHLORPERAZINE 10mg/2ml INJECTION IV ONE (23:15)
[2016-12-25] MEDS ORDERED: METOCLOPRAMIDE 10mg/2ml INJECTION IV ONE (23:15)
[2016-12-25] MEDS ORDERED: KETOROLAC 30mg/ml INJECTION IV ONE (23:15)
[2016-12-25 23:24] LABS: BASOPHILS # (AUTO) 0.1 T/MM3 (0-0.2); BASOPHILS % (AUTO) 0.5 % (0-2); EOSINOPHILS # (AUTO) 0.3 T/MM3 (0-0.5); EOSINOPHILS % (AUTO) 2.4 % (0-4); HCT - HEMATOCRIT 39.7 % (36-46); HGB - HEMOGLOBIN 12.2 GM/DL (12-16); IMMATURE GRANULOCYTE # (AUTO) 0.04 T/MM3 (0.00-0.03); IMMATURE GRANULOCYTE % (AUTO) 0.4 % (0.0-0.5); LYMPHOCYTES # (AUTO) 2.8 T/MM3 (1-4.8); LYMPHOCYTES % (AUTO) 27.7 % (23-45); MEAN CORPUSCULAR HGB 29.5 UUG (26-34); MEAN CORPUSCULAR HGB CONC(MCHC 30.7 GM/DL (31-37); MEAN CORPUSCULAR VOLUME 95.9 UM3 (80-100); MONOCYTES # (AUTO) 0.9 T/MM3 (0-0.8); MONOCYTES % (AUTO) 8.7 % (0-9.0); NEUTROPHILS #(AUTO)-ABSOLUTE 6.2 T/MM3 (1.8-7.7); NEUTROPHILS % (AUTO) 60.3 % (33-66); RED BLOOD COUNT 4.14 M/MM3 (4.00-5.20); WBC - WHITE BLOOD COUNT 10.2 T/MM3 (4.5-11.0)
[2016-12-25 23:34] LABS: ALBUMIN 4.1 G/DL (3.5-5.0); ALBUMIN/GLOBULIN RATIO 1.6 RATIO (1.1-2.2); ALKALINE PHOSPHATASE 99 U/L (38-126); ALT (SGPT) 37 U/L (9-52); ANION GAP 10 MEQ/L (5-15); AST (SGOT) 18 U/L (14-36); BUN/CREATININE RATIO 8 RATIO (6-26); CALCIUM 9.1 MG/DL (8.4-10.2); CHLORIDE 111 MEQ/L (98-107); CO2 - CARBON DIOXIDE 26 MEQ/L (22-30); CREATININE 0.9 MG/DL (0.7-1.2); GLOMERULAR FILTRATION RATE 71; GLUCOSE 79 MG/DL (65-110); SODIUM 147 MEQ/L (134-144); TOTAL PROTEIN 6.6 G/DL (6.3-8.2)
--- OUTSIDE RECORDS SUMMARY | 2016-12-25 23:41 | XMS REPORT | Continuity of Care Document ---
Author Author [facility] Organization [facility] Address Unknown Phone Unavailable Care Team Providers Care Grain Elevator Superintendent Name Role Phone Primary Care Physician Unavailable Source Comments Some departments are not documenting in the electronic medical record. If you do not see the information that you expected, contact Release of Information in the Health Information Management department at [phone] for further assistance in locating additional records.[facility] Active Allergies and Adverse Reactions Not [...]
--- NOTE | 2016-12-26 00:10 | NUR ---
fax faxed to lane release of information for records from visit on saturday regarding the kidney stone.
[2016-12-26] MEDS ORDERED: DiphenhydrAMINE 50 MG/ML INJECTION IV ONE (00:30)
[2016-12-26 00:36] LABS: BLOOD, URINE 1+ (NEGATIVE); COLOR,URINE YELLOW (YELLOW); LEUKOCYTE ESTERASE ,URINE NEGATIVE (NEGATIVE); NITRITE,URINE NEGATIVE (NEGATIVE); UROBILINOGEN,URINE 0.2 EU/DL (NORMAL)
[2016-12-26] MEDS ORDERED: METO-230 PO (00:40)
[2016-12-26 01:03] VITALS: BP 132/81; PULSE 77; RESP 18; O2SAT 99
--- NOTE | 2016-12-26 01:03 | NUR ---
depart pt is given dismissal instructions with verbal understanding. pt leaves ambulatory to ed exit.
[2016-12-26 01:14] LABS: BACTERIA,URINE NONE SEEN (NEGATIVE); WBC,URINE NONE SEEN /HPF (0-5)
== END 2016-12-26 01:03 | disposition home or self-care (01) ==
LOC: ED 22:46
DX: R10.9 Unspecified abdominal pain (principal); R11.0 Nausea; Z87.442 Personal history of urinary calculi
CPT/HCPCS: 36415; 80053; 81001; 81025; 85025; 96374; 96375; 99284; J1200; J1885; J2765